=== PATIENT | female | born 1985 | race Caucasian/White ===

== ENCOUNTER 2025-02-07 18:32 | Emergency (ER) | payer MEDICAID, SELFPAY ==
[2025-02-07 19:15] VITALS: BP 109/80; PULSE 70; RESP 16; TEMP 36.8; O2SAT 100; BMI 27.6
[2025-02-07 20:31] VITALS: BP 000/00; PULSE 0; RESP 0; TEMP -17.7; TEMP 0; O2SAT 0
--- NOTE | 2025-02-07 23:40 | [facility].EDGENADL ---
Discharge Plan Disposition Patient Disposition: Eloped Chief Complaint: Extremity Injury, Lower Prescriptions Prescriptions: No Action hydroxyzine pamoate [Vistaril] 25 MG Capsule 25 mg PO BID PRN (Reason: Anxiety) ivermectin 3 MG Tablet 3 mg PO DIRECTED Rx Instructions: on days 1,2 8,9,15 mebendazole 100 MG tablet,chewable 100 mg PO BID Qty: 6 3RF clindamycin HCl [Cleocin HCl] 300 MG Capsule 300 mg PO Q6H Qty: 28 0RF Clinical Impressions Clinical Impression: Eloped from emergency department Print Language Print Language: Lebanese Discharge ED Provider: Damon Wilburn General Adult HPI General Chief complaint: Extremity Injury, Lower Stated complaint: Knot on left leg Time Seen by Provider: 02/07/25 19:40 Mode of Arrival: Ambulatory Source of Information: Patient Description of Symptoms (Recalled from ER Triage Doc. by RN): Pt states she has had a knot on her left leg that will not go away. Seen 2 weeks ago at [facility], [place] neg, given abx as and she states it is breaking her face out... History of Present Illness HPI narrative: Patient left without being seen. I was therefore unable to assess patient and form a clinical impression. Please note that first provider time was documented solely for the purposes of chart completion. Electronic medical record will not allow me to file a note for the purposes of documenting this encounter in the emergency department without first provider time but again, I did not evaluate the patient. Related Data Home Medications ?Medication ?Instructions ?Recorded ?Confirmed hydroxyzine pamoate 25 mg capsule 25 mg PO BID PRN Anxiety 01/13/18 01/13/18 (Vistaril) ivermectin 3 mg tablet 3 mg PO DIRECTED skin problems 01/13/18 01/13/18 Previous Rx's ?Medication ?Instructions ?Recorded mebendazole 100 mg chewable tablet 100 mg PO BID exposure to Bot fly 01/13/18 ##6 clindamycin HCl 300 mg capsule 300 mg PO Q6H ##28 07/02/18 (Cleocin HCl) Allergies Allergy/AdvReac Type Severity Reaction Status Date / Time amoxicillin (AMOXICILLIN) Allergy Intermediate Verified 07/02/18 16:20 erythromycin base (From Allergy Intermediate Verified 07/02/18 16:20 ERYTHROCIN) Penicillins (PENICILLINS) Allergy Intermediate Verified 01/01/18 14:16 sulfisoxazole (SULFISOXAZOLE) Allergy Intermediate Verified 07/02/18 16:20 tramadol (TRAMADOL) Allergy Unknown Verified 07/02/18 16:20 [facility] Disclaimer: The information contained in this section may have been updated after the patient was seen, as this information can be updated by other users. Social History Smoking Status: Current every day smoker tobacco type: cigarettes alcohol intake: never current occupational status: other Travel in the last 8 weeks?: None ROS Obtained: Yes other (Unobtainable) Physical Exam General General appearance: other (Unobtainable) Head Head exam: other (Unobtainable) ENT ENT exam: Present other (Unobtainable) Neck Neck exam: Present other (Unobtainable) Chest Chest inspection: Present other (Unobtainable) Respiratory Respiratory exam: Present other (Unobtainable) Cardiovascular Cardiovascular exam: Present other (Unobtainable) Abdominal Exam Abdominal exam: Present other (Unobtainable) Extremities Exam Extremities exam: Present other (Unobtainable) Back Exam Back exam: Present other (Unobtainable) Neurological Exam Neurological exam: Present other (Unobtainable) Psychiatric Psychiatric exam: Present other (Unobtainable) Medical Decision Making Medical Records Screening: Per USPSTF and CDC recommendations, given the prevalence of disease in our region, it is our hospital?s policy to screen for HIV and viral Hepatitis for all patients aged 18 and over and those with ongoing risk factors. Fabian Inquiry Pt receiving controlled substance: No Vital Signs: 02/07/25 19:15 02/07/25 20:31 Temperature 98.2 F 0 F L Temperature Source Oral Pulse Rate 0 L Pulse Rate [Left] 70 Respiratory Rate 16 0 L Blood Pressure 000/00 L Blood Pressure [Right Arm] 109/80 L Blood Pressure Mean [Right Arm] 89 Blood Pressure Source [Right Arm] Automatic Cuff Blood Pressure Position [Right Arm] Sitting 02 Sat by Pulse Oximetry 100 Oxygen Delivery Method Room Air Medical Decision Narrative: Patient left without being seen. I was therefore unable to assess patient and form a clinical impression.Please note that first provider time was documented solely for the purposes of chart completion.Electronic medical record will not allow me to file a note for the purposes of documenting this encounter in the emergency department without first provider time but again I did not see patient. Critical Care Critical Care Time Critical Care Time: No
== END 2025-02-07 19:45 | disposition left against medical advice (07) ==
LOC: ER 19:24
PROVIDERS: Emergency Provider Emergency Medicine; PCP Emergency Medicine
DX: Z53.21 Procedure and treatment not carried out due to patient leaving prior to being seen by health care provider (principal)
CPT/HCPCS: 99211

== ENCOUNTER 2025-02-24 10:06 | Outpatient (CLI) | payer MEDICAID, SELFPAY ==
[2025-02-24 15:28] LABS: Coronavirus 19, PCR Not Detected (NotDetected); Human Rhinovirus Not Detected (NotDetected); Influenza A, PCR Not Detected (NotDetected); Influenza B, PCR Not Detected (NotDetected); Respiratory Syncytial Virus Not Detected (NotDetected)
--- OUTSIDE RECORDS SUMMARY | 2025-02-25 13:46 | XMS_ITS | Continuity of Care Document ---
Author Organization [facility] Address [address] [address] Care Team Providers Care Percussion Instrument Tuner Name Role Phone EDMOND OATES Primary Care Provider Assessment No assessment recorded. Plan of Treatment Reminders Order Date Submit Date Provider Last Modified By Organization Details Last Modified Time Details Appointments None recorded. Lab None recorded. Referral None recorded. Procedures None recorded. Surgeries None recorded. Imaging US, lower extremity 2024 025 [facility] ([facility]), [address] [place], [address], 5 07:47:18 Medication Orders clindamycin HCl 300 mg capsule 2024 025 [facility] [address] [facility], [place], [address], 5 16:08:24 Patient TargetsNo targets recorded. Patient InstructionsNo instructions recorded. Reason for Referral None Reported. Results Created Date Observation Date Name Description Value Unit Range Abnormal Flag Note LastModifiedBy Organization Detail LastModifiedTime 01/27/2001/25/[address] [facility] m [facility] [address] [facility] [address] Phone: Fax: Name: JENNIE REVELES Exam Date: : [birth year] Age 39 years Gender : F Access ion: [id number] Physic royal: YOCASTA OATES Facili ty: [place] Facili ty HSV: Outpat ient Exam: US EXTREM LT Ultras ound left lower extrem ity COMPAR HAWA: None HISTOR Y: Anteri or left gaviria swelli ng TECHNI QUE: B-mode and color Dopple r used FINDIN GS: Ultras ound of palpab le area in the left gaviria anteri or aspect was perfor med. No focal fluid collec tion or hemato ma detect ed. No superf icial thromb us in the local veins. There is mild soft tissue edema in the region of palpat ion. No focal mass detect ed. IMPRES SETH: Mild subcut aneous edema in the area of palpat ion. No organi zed fluid /cyst/ mass identi fied. Electr onical ly signed by: Hyacinth Merchant MD 2024 04:09 PM EDT RP Workst ation: [id number] Dictat ed By: HYACINTH MERCHANT Transc ribed By: Transc ribed On: 025 11:15 AM Electr onical ly signed by: HYACINTH MERCHANT 025 Thank you for referr JENNIE Wing to [facility]. Legall y authen ticate d by BRIANNA CLAROS MD 01-25 11:15: 23 CC'ed Logic: Orderi ng Provid er: ИВАН ROLDAN CC Provid er: ИВАН ROLDAN Attend ing Provid er: ИВАН ROLDAN Referr ing Provid er: ИВАН ROLDAN Admitt ing Provid er: ИВАН ROLDAN tpaini [facility] (Radiology) [address] , [place], [address], 01/27/2025 09:45:28 Result Notes None recorded. Problems Name Problem SNOMED Code Status Onset Date Resolution Date Notes Provider Name and Address Organization Details Recorded Time Chronic pain syndrome 370758142 Active 2021 IRENE Boo - [place] - [place] & [place] 16:02:26 Neck pain 26004100 Active 2021 Na Pardini null, [place] - [facility] - [place] & [place] 2 16:02:37 Asthma 247439159 Active 2021 Na Danieldini null, [place] [facility] & [place] 2 16:02:51 Insomnia 807936032 Active 2021 Na Pardini [place] & [place] 2 16:03:27 Gastroesophag eal reflux disease 357096635 Active 2021 Na Pardini [place] & [place] 2 16:04:03 Degeneration of intervertebra l disc 68890451 Active 2021 Na Pard[place] & [place] 2 16:04:31 Anxiety disorder 934540157 Active 2021 Na Pardini [place] 2 16:04:40 History of drug abuse 937533851 Active 2021 Na Pardini [place] & [place] 2 16:04:50 Chronic fatigue syndrome 59675529 Active 2021 Na Pard[place] 2 16:05:03 Carpal tunnel syndrome 31145156 Active 2021 Na Pard[place] & [place] 2 16:05:15 Hearing loss 46642791 Active 2021 Na Pard[place] 2 16:05:37 Normal grief reaction 007334685 Active 2021 Na Pardini [place] [facility] [place] & [place] 2 16:05:52 Vitamin deficiency 25355031 Active 2021 Edmond Oates MD [address] [place] [address], [address] , [place] - [facility] - [place] & [place] 2 16:32:07 Seizure disorder 586265292 Active 2022 Edmond Oates MD [address] [place], [address] , [place] & [place] 3 14:31:57 Chronic hepatitis C 044821614 Active 2022 Veronica Quintana NP [address] [facility], [address], [place], [address] , [place] [facility] - [place] & [place] 3 13:09:26 Constipation 69012206 Active 2022 Veronica Quintana NP [address] [facility], [address], [place], [address] , [place] & [place] 3 13:09:26 Chest pain 61005418 Active 2022 Veronica Quintana NP [address] [place] [address], [address] [place] [address], [address] , [place] & [place] 3 13:09:26 Chronic idiopathic constipation 96388678 Active 2022 Veronica Quintana NP [address] [place] [address], [address], [address] , [place] [facility] & [place] 3 14:48:58 Problem Notes None recorded. Procedures Surgical History Date Name Laterality Status Provider Name and Address Organization Details Recorded Time 06/26/20 23 EMG/ Nerve Conduction Study completed Shubham Mix M.D [address] [place] [address], [address], [place], [address], [place] [facility] [place] & [place] 07/01/2023 22:50:04 06/23/20 23 EMG/ Nerve Conduction Study completed Shubham Mix M.D [address] [place] [address], [address], [place], [address], [place] - [facility] - [place] & [place] 07/01/2023 22:11:21 09/08/19 10 Other completed Livan Cassidy [place] - [place] - [place] & [place] 11/06/2022 15:01:29 09/08/19 07 Other completed Livan BONILLA - [facility] & [place] 11/06/2022 15:01:29 Caesarean Section completed Gabbie Zepeda [facility] & [place] 05/31/2024 10:09:18 tympanotomy completed Gabbie Zepeda [facility] & [place] 05/31/2024 10:12:06 Imaging Results None recorded. Procedure Notes None recorded. Medical Equipment None Reported. Allergies Allergen ID Allergen Name Allergen Category Reaction Reaction Severity Criticality Documentation Date Start Date Code Code System Note Provider Name and Address Organization Details Recorded Time 151825 cefaclor medicatio n Not available Not available low 11/02/2024 2176 RxNorm Adelita Colon null, [place] - [facility] & [place] 5 15:53:27 308491 erythromy nabil medicatio n rash mild low 11/02/2024 4053 RxNorm Adelita Colon null, [place] - [facility] & [place] 5 15:53:48 051159 Substance with sulfonami de structure and antibacte rial mechanism of action (substanc e) medicatio n rash mild low 11/02/2024 63998 8003 SNOMED Adelita Colon null, [place] - [facility] & [place] 5 15:54:08 70233 Pediazole medicatio n Not available Not available Not available 08/07/2022 46334 RxNorm Livan winters, [place] - [facility] & [place] 3 15:01:05 87392 amoxicill in medicatio n rash mild low 08/07/2022 723 RxNorm Adelita Colon null, [place] - [facility] & [place] 5 15:53:07 25972 tramadol medicatio n seizure severe Not available 08/07/2022 26004 RxNorm Wendya Khanh null, [place] - [facility] & [place] 3 15:01:05 95874 Product containin g penicilli n (product) medicatio n rash severe Not available 11/06/2022 00857 8001 SNOMED Rierra Cassidy null, [place] - [facility] - [place] & [place] 3 15:01:05 Medications Name Sig Start Date Stop Date Status Note LastModified by Organization Details LastModified Time Prescriptio n - Renewal 11/06 completed Not Available Not Available Not Available Miralax 17 gram/dose oral powder 17 g every day by oral route. active Not Available Not Available No t Available methocarbam ol 500 mg tablet TAKE 1 TABLET BY MOUTH EVERY 12 HOURS 06/12 completed Not Available Not Available Not Available prednisone 10 mg tablet TAKE 6 TABS BY MOUTH ONCE DAILY FOR 2 DAYS, THEN TAKE 5 TABLETS ONCE DAILY FOR 2 DAYS, THEN TAKE 4 TABLETS ONCE DAILY FOR 2 DAYS, THEN TAKE 3 TABLETS ONCE DAILY FOR 2 DAYS, THEN TAKE 2 TABLETS ONCE DAILY FOR 2 DAYS, THEN TAKE 1 TAB ONCE DAILY FOR 2 DAYS 07/23 completed Not Available Not Available Not Available gabapentin 600 mg tablet TAKE 1 TABLET BY MOUTH 4 TIMES DAILY DIRECTED active Not Available Not Available No t Available doxycycline hyclate 100 mg capsule TAKE 1 CAPSULE BY MOUTH TWICE DAILY FOR 7 DAYS active Not Available Not Available No t Available atorvastati n 20 mg tablet TAKE 1 TABLET BY MOUTH ONCE DAILY active Not Available Not Available No t Available clindamycin HCl 300 mg capsule TAKE 1 CAPSULE BY MOUTH THREE TIMES DAILY active Not Available Not Available No t Available trazodone 50 mg tablet TAKE 1 TABLET BY MOUTH AT BEDTIME NEEDED 11/06 completed Not Available Not Available Not Available cetirizine 10 mg tablet TAKE 1 TABLET BY MOUTH ONCE DAILY 01/19 completed Not Available Not Available Not Available azithromyci n 250 mg tablet TAKE 1 TABLET BY MOUTH ONCE DAILY FOR 4 DAYS 11/30 completed Not Available Not Available Not Available ibuprofen 800 mg tablet TAKE 1 TABLET BY MOUTH THREE TIMES DAILY active Not Available Not Available No t Available tizanidine 4 mg tablet TAKE 1 TABLET BY MOUTH TWICE DAILY NEEDED FOR MUSCLE SPASM active Not Available Not Available No t Available hydrocodone 5 mg-acetamin ophen 325 mg tablet TAKE 1 TABLET BY MOUTH EVERY 6 HOURS 08/07 completed Not Available Not Available Not Available ondansetron HCl 4 mg tablet TAKE 1 TABLET BY MOUTH EVERY 6 HOURS FOR NAUSEA AND VOMITING 11/06 completed Not Available Not Available Not Available prednisone 20 mg tablet TAKE 2 TABLETS BY MOUTH ONCE DAILY FOR 5 DAYS active Not Available Not Available No t Available gabapentin 400 mg capsule TAKE 1 CAPSULE BY MOUTH THREE TIMES DAILY 03/27 completed Not Available Not Available Not Available hydroxyzine HCl 50 mg tablet TAKE 1 TABLET BY MOUTH EVERY 12 HOURS NEEDED 06/12 completed Not Available Not Available Not Available propranolol 10 mg tablet TAKE 1 TABLET BY MOUTH ONCE DAILY 08/07 completed Not Available Not Available Not Available famotidine 20 mg tablet TAKE 1 TABLET BY MOUTH ONCE DAILY 11/30 completed Not Available Not Available Not Available meclizine 25 mg tablet Take 1 tablet 3 times a day by oral route as needed for 10 days. 06/12 completed Not Available Not Available Not Available gabapentin 300 mg capsule Take 1 capsule 3 times a day by oral route. 03/27 completed Not Available Not Available Not Available omeprazole 20 mg capsule,del ayed release TAKE 1 CAPSULE BY MOUTH ONCE DAILY IN THE MORNING BEFORE BREAKFAST active Not Available Not Available No t Available folic acid 1 mg tablet TAKE 1 TABLET BY MOUTH ONCE DAILY 11/30 completed Not Available Not Available Not Available levofloxaci n 500 mg tablet 04/08 completed Not Available Not Available Not Available methylpredn isolone 4 mg tablets in a dose pack TAKE DIRECTED 11/30 completed Not Available Not Available Not Available lamotrigine 100 mg tablet TAKE 1 TABLET BY MOUTH ONCE DAILY active Not Available Not Available No t Available nitrofurant oin monohydrate /macrocryst als 100 mg capsule TAKE 1 CAPSULE BY MOUTH EVERY 12 HOURS 04/13 completed Not Available Not Available Not Available ProAir HFA 90 mcg/actuati on aerosol inhaler INHALE 2 PUFFS BY MOUTH EVERY 4 HOURS NEEDED 08/07 completed Not Available Not Available Not Available omeprazole 20 mg tablet,jeremi yed release 02/02 completed Not Available Not Available Not Available desvenlafax ine succinate ER 50 mg tablet,exte nded release 24 hr Take 1 tablet by mouth once daily 2024 active Not Available Not Available Not Avai lable Vraylar 1.5 mg capsule TAKE 1 CAPSULE BY MOUTH ONCE DAILY active Not Available Not Available No t Available sofosbuvir 400 mg-velpatas vir 100 mg tablet 12/24 completed Not Available Not Available Not Available Paxlovid 300 mg (150 mg x 2)-100 mg tablets in a dose pack TAKE 3 TABLETS TOGETHER (TWO 150 MG NIRMATREL VIR TABLETS AND ONE 100 MG RITONAVIR TABLET) BY MOUTH TWICE DAILY FOR 5 DAYS. 06/15 completed Not Available Not Available Not Available Vitals Date Recorded Body height Body mass index (BMI) Body weight Body temperature Oxygen saturation Oxygen saturation in Arterial blood by Pulse oximetry Heart rate Respiratory rate Systolic blood pressure Diastolic blood pressure Provider Name and Address Organization Details Last Updated DateTime 149.86 cm 28.1 kg/m2 84836.3 4 g 98.4 [degF] 99 % 99 % 87 /min 16 /min 111 mm[Hg] 70 mm[Hg] Na Vega [facility] & [place] 15:31:19 Social History Question Answer Notes LastModified by Organizat ion Details LastModified Time Tobacco Smoking Status Former Smoker Na Vega [facility] & [place] 11/30/2024 08:27:46 Do You Have An Advance Directive? Yes [email or web address] Information n ot available 11/06/2022 Do You Wear A Helmet When Biking? Yes Information not available 11/30/2024 Are You Blind Or Do You Have Difficulty Seeing? Yes [email or web address] Information n ot available 11/06/2022 What Is Your Level Of Caffeine Consumption? Moderate [email or web address] Information not available 08/13/2023 In The 14 Days Before Symptom Onset, Have You Had Close Contact With A Laboratory-confirm ed COVID-19 While That Case Was Ill? No Information n ot available 11/30/2024 In The 14 Days Before Symptom Onset, Have You Had Close Contact With A Person Who Is Under Investigation For COVID-19 While That Person Was Ill? No Information not available 11/30/2024 Have You Been To An Area Known To Be High Risk For COVID-19? No Information not available 11/30/2024 Are You Deaf Or Do You Have Serious Difficulty Hearing? No Information not available 11/30/2024 What Type Of Diet Are You Following? REGULAR [email or web address] Information n ot available 08/13/2023 Have You Processed Blood Or Body Fluids From An Ebola Virus Disease Patient Without Appropriate PPE? No Information not available 11/30/2024 Do You Reside In Or Have You Traveled To An Area Where Ebola Virus Transmission Is Active? No Information not available 11/30/2024 Have There Been Any Changes To Your Family Or Social Situation? No Information no t available 11/30/2024 What Is The Fluoride Status Of Your Home? Unknown Information not available 11/30/2024 Are There Any Guns Present In Your Home? No Information not available 11/30/2024 Have You Recently Or Are You Planning To Travel To An Area With Zika Virus? No Information not available 11/30/2024 Do You Use Insect Repellent Routinely? Yes Information not available 11/30/2024 Do You Feel Safe At Home? Yes Information not available 11/30/2024 What Was The Date Of Your Most Recent Tobacco Screening? 11/06/2022 [email or web address] Information not available 11/06/2022 What Is Your Current Pack Years? 10-19packyear s [email or web address] Information not available 08/13/2023 Do You Have Any Pets? No Information not available 11/30/2024 What Is Your Relationship Status? Single Information not available 11/30/2024 Do You Use Your Seat Belt Or Car Seat Routinely? Yes Information not available 11/30/2024 Are You Sexually Active? Yes Information not available 11/30/2024 Do You Have Smoke And Carbon Monoxide Detectors In Your Home? Yes Information not available 11/30/2024 Are You Passively Exposed To Smoke? Yes [email or web address] Information no t available 11/06/2022 How Much Tobacco Do You Smoke? No Information not available 11/30/2024 Do You Use Sunscreen Routinely? Yes Information not available 11/30/2024 Has Tobacco Cessation Counseling Been Provided? Yes [email or web address] Information not available 08/13/2023 On What Date Was Tobacco Cessation Counseling Provided? 08/07/2022 [email or web address] Information not available 08/13/2023 How Many Years Have You Smoked Tobacco? 17 Information not available 07/23/2023 Do You Have Difficulty Walking Or Climbing Stairs? No Information not available 11/30/2024 Are You Currently In School? No Information not available 11/30/2024 Sex: Unknown Functional Status Question Answer Note LastModified by Organizat ion Details LastModified Time Do you use any illicit or recreational drugs? No Information not available 08/07/2022 Do you or have you ever used any other forms of tobacco or nicotine? Yes Information not available 11/30/2024 What is your level of alcohol consumption? None Information not available 08/07/2022 Do you or have you ever used smokeless tobacco? Former smokeless tobacco user [email or web address] Information not available 11/06/2022 Are you currently employed? No Information not available 11/30/2024 Do you have transportation difficulties? No Information not available 11/30/2024 Are you able to walk? [email or web address] Information not available 11/30/2024 Do you have difficulty doing errands alone? No Information not available 11/30/2024 Are you able to care for yourself? Yes Information n ot available 11/30/2024 Do you have difficulty dressing or bathing? No Information not available 11/30/2024 Do you or have you ever used e-cigarettes or vape? Current user of electronic cigarettes Information not available 11/30/2024 What is your exercise level? Moderate [email or web address] Information not available 11/06/2022 Mental Status Question Answer Note LastModified by Organizat ion Details LastModified Time Do you feel stressed (tense, restless, nervous, or anxious, or unable to sleep at night)? [id number] [email or web address] Information not available 11/06/2022 Do you have difficulty concentrating, remembering or making decisions? No Information no t available 11/30/2024 Family History Relationship Description Onset Age of this Age Resolved Age Notes LastModified by Organization Details LastModified Time Sister Heart disease [email or web address] Not available 2023 10:08:27 Sister Congenital heart disease [email or web address] Not available 2024 15:52:54 Mother Disorder of urinary bladder [email or web address] Not available 2023 10:08:46 Mother Mental disorder [email or web address] Not available 2024 15:51:14 Mother Malignant tumor of breast [email or web address] Not available 2024 15:52:28 Mother Malignant neoplasm of ovary [email or web address] Not available 2024 15:52:44 Father Hypertensive disorder [email or web address] Not available 2023 10:08:52 Unspecified Relation Degeneration of intervertebr al disc [email or web address] Not available 2023 10:10:54 Maternal Grandmother Mental disorder [email or web address] Not available 2024 15:51:08 Daughter Congenital heart disease [email or web address] Not available 2024 15:52:05 Paternal Grandmother Malignant neoplasm of ovary Not available 2024 15:52:44 Medical History Condition Response Substance Abuse Y Vision or Eye Problems Y Arthritis Y Ear or Hearing Problems Y Spine Problems Y Back Problems Y Neurological Problems Y Gynecological HistoryNo gynecological history recorded. Obstetrics History GPAL:G 0 P 0 0 0 0 Past Encounters Encounter ID Performer Location Encounter Start Date Encounter Closed Date Diagnosis/Indication Diagnosis SNOMED-CT Code Diagnosis ICD10 Code Diagnosis Note [id number] [facility] [address] [address] 01/19/2025 14:54:14 01/19/2025 16:06:28 Abscess of lower limb 204657228 L02.416 Health Concerns Section Related Observation LastModified by Organization Detai ls LastModified Time None Recorded Concern Status LastModified by Organization Details LastModified Time None Recorded Payers Encounter Date Sequence Insurance Name Policy Number Policy Esqueda Covered Member ID Esqueda Member ID Guarantor Name 01/19/2025 1 PASSPORT BY [employer] (MEDICAID REPLACEMENT - HMO) [id number] Jennie Reveles [id number] Jennie Reveles OBGyn Episode No OBEpisode recorded.
--- OUTSIDE RECORDS SUMMARY | 2025-02-25 13:46 | XMS_ITS | Continuity of Care Document ---
Author Organization [facility] Address [address] [place] [address] Care Team Providers Care Radiator Tester Name Role Phone SKYLER OATES Primary Care Provider LYUDMILA GARBER Referring Provider Unavailable Assessment Encounter Date Assessment Date Assessment LastModified by Organization Details LastModified Time 12/31/2024 12/31/2024 Pain History: Ms. Rivers is a pleasant 39-year-old female we see with increased neck pain and referral into the shoulders and upper extremities. This has been worse for some time now and she is just now reporting it. She also has back pain and radicular symptoms in bilateral lower extremities as well. We do provide her with gabapentin 600 mg 3 times daily which she has found beneficial to the degree in the past. She has solicit increase in medication in the past which she does again today. I am willing to do this but explained there are more potentially adverse side effects with higher doses particularly for long periods of time and there is no room to move beyond this in strength or frequency. She appears to understand. I have offered to increase this to 600 mg 4 times a day versus 800 mg 3 times a day. She would prefer to schedule her 600 mg capsules 4 times a day. This office does not provide any other medication for this patient. Past Medical History: This patient has multiple chronic pain complaints. She has chronic neck pain with radicular symptoms in bilateral upper extremities. She has chronic low back pain with symptoms extending into both lower extremities. She also has bilateral hip pain related to greater trochanteric bursitis. The primary care physician prescribes ibuprofen and tizanidine. Imaging: MRI cervical spine 04/2022 Some edematous spondylotic endplate changes are present at C4-5 and C5-6. There is otherwise no evidence of fracture or suspicious marrow replacing lesion. There is straightening and mild reversal of usual cervical lordosis, otherwise without evidence of listhesis or subluxation. The cervical spinal cord is normal in caliber and signal throughout. The paraspinal soft tissues demonstrate no acute finding. Multilevel spondylosis change is evident, with areas of involvement noted including C2-3, bilateral facet arthropathy with some ugrv-mv-shbhujhs neuroforaminal narrowing present. The spinal canal is patent. C3-4, disc osteophyte complex and bilateral facet arthropathy. There is lwoy-ah-sweyazao spinal canal narrowing and mild bilateral neuroforaminal stenosis. C4-5, disc osteophyte complex and bilateral facet arthropathy. There is moderate to severe spinal canal narrowing and moderate bilateral neuroforaminal stenosis. C5-6, disc osteophyte complex and bilateral facet arthropathy, with moderate to severe spinal canal narrowing and moderate bilateral neuroforaminal stenosis. C6-7, small disc osteophyte complex and bilateral facet arthropathy. There is mild spinal canal and bilateral neuroforaminal narrowing IMPRESSION: Multilevel cervical spondylosis is present, appearing similar to 2020 comparison and most severe at the C4-5 and C5-6 levels where there is moderate to severe spinal canal narrowing and zzss-ak-ktusskzd bilateral neuroforaminal stenosis. Surgical evaluation/ history: Not a surgical candidate per [facility] neurosurgery note Conservative Treatments: Patient has failed conservative measures for greater than 6 weeks including physical therapy/chiroprac tic care/spinal manipulation, a monitored home exercise program, and/or NSAIDs within the last six months. Interventional treatment history: None Previous analgesics: OTC, ibuprofen Current analgesics: Gabapentin 600 mg 3 times daily, ibuprofen Compliance Monitoring: The patient is currently prescribed gabapentin which she tolerates. The updated Fabian report is reviewed today and is appropriate. Urine drug screen sent for confirmation on 11/01/2024 was appropriately positive for gabapentin as expected. No urine drug screen was obtained today 12/31/2024. Anticoagulant/Ant iplatelet Medications: NSAIDs Plan: Ms. Rivers is a pleasant 39-year-old female with increased neck pain with referral into shoulders and bilateral upper extremities. She reports that her back pain and radicular symptoms are stable. I will increase her gabapentin from 600 mg 3 times a day to 4 times a day. She will follow-up in office in 60 days for further evaluation and treatment planning. If she has any adverse side effects she knows to stop the medication immediately and contact the office. [email or web address] Not available 12/31/2024 15:27:14 Plan of Treatment Reminders Order Date Submit Date Provider Last Modified By Organization Details Last Modified Time Details Appointments FOLLOW UP 15 2024 03:00P Roger THUAN LEROY APRN Not available Not available Not available Lab None recorded. Referral None recorded. Procedures None recorded. Surgeries None recorded. Imaging None recorded. Medication Orders gabapenti n 600 mg tablet 2024 025 [facility] [place], [address], 12/31/2024 15:25:05 Patient TargetsNo targets recorded. Patient Instructions Encounter Date Encounter Id Patient Instructions Last Modified By Organization Details Last Modified Time 12/31/2024 [id number] high blood pressure: care instructions [email or web address] Not available 12/31/2024 16:28:19 A healthy lifestyle: care instructions [email or web address] Not available 12/31/2024 16:28:19 advance directives: care instructions [email or web address] Not available 12/31/2024 16:28:19 depression and chronic disease: care instructions [email or web address] Not available 12/31/2024 16:28:19 safe use of opioid pain medicine: care instructions [email or web address] Not available 12/31/2024 16:28:19 Reason for Referral None Reported. Problems Name Problem SNOMED Code Status Onset Date Resolution Date Notes Provider Name and Address Organization Details Recorded Time Chronic pain 81367206 Active 2023 luis antonio winters [facility] 4 13:06:37 Lumbar radiculopathy 687536537 Active 2023 TAMMY Zheng [address] [place] [address], [phone] , [facility] 4 10:01:51 Acute pain 846959870 Active 2024 Alona winters [facility] 5 16:26:33 Cervical spondylosis 043960981 Active 2021 Becky Campbell null, [place] [facility] 2 14:29:11 Chronic hepatitis 58445992 Active 2021 Becky Campbell null, [place] [facility] 2 14:29:43 Degeneration of lumbar intervertebra l disc 22825038 Active 2021 Becky Campbell null, [place] [facility] 2 14:29:52 Depressive disorder 16649752 Active 2021 Becky Campbell null, [place] [facility] 2 14:25:20 Bipolar disorder 15789820 Active 2021 Becky Campbell null, [place] [facility] 2 14:25:26 Cervical radiculopathy 47920673 Active 2021 KAYLA ROSS MD [address] [place] [address], [phone] , [place] [facility] 2 16:28:45 Cervical spondylosis without myelopathy 673937187 Active 2021 KAYLA ROSS MD [address] [place] [address], [phone] , [place] [facility] 2 16:28:49 Overweight 684518324 Active 2022 alexandra durand null, [place] [facility] 3 06:01:51 Lumbar spondylosis 942327760 Active 2022 alexandra durand null, [place] [facility] 3 06:02:10 Lumbosacral radiculitis 76989783 Active 2022 luis antonio ireland null, [place] [facility] 3 15:29:27 Greater trochanteric pain syndrome 3257391 Active 2022 luis antonio ireland null, [place] [facility] 3 13:25:28 Problem Notes None recorded. Procedures Surgical History Date Name Laterality Status Provider Name and Address Organization Details Recorded Time delivery completed Becky Campbell [place] [facility] 07/02/2022 14:30:01 tympanotomy completed Becky [facility] 07/02/2022 14:30:11 Imaging Results None recorded. Procedure Notes None recorded. Medical Equipment None Reported. Allergies Allergen ID Allergen Name Allergen Category Reaction Reaction Severity Criticality Documentation Date Start Date Code Code System Note Provider Name and Address Organization Details Recorded Time 327971 tramadol medicatio n other Not available Not available 07/03/2022 06589 RxNorm IRENE [facility] 2 14:24:39 051310 amoxicill in medicatio n rash Not available Not available 07/03/2022 723 RxNorm IRENE [facility] 2 14:24:39 949394 Product containin g penicilli n (product) medicatio n rash Not available Not available 07/03/2022 51136 8001 SNOMED IRENE [facility] 2 14:24:39 844490 Pediazole medicatio n Not available Not available Not available 07/03/2022 42112 RxNorm IRENE [facility] 2 14:31:07 Medications Name Sig Start Date Stop Date Status Note LastModified by Organization Details LastModified Time methocarbam ol 500 mg tablet TAKE 1 TABLET BY MOUTH EVERY 12 HOURS 11/10 completed Not Available Not Available Not Available [...] 1 TAB ONCE DAILY FOR 2 DAYS 09/12 completed Not Available Not Available Not Available gabapentin 600 mg tablet TAKE 1 TABLET BY MOUTH 4 TIMES DAILY DIRECTED active Not Available Not Available No t Available atorvastati n 20 mg tablet TAKE 1 TABLET BY MOUTH ONCE DAILY 05/06 completed Not Available Not Available Not Available clindamycin HCl 300 mg capsule TAKE 1 CAPSULE BY MOUTH THREE TIMES DAILY 07/03 completed Not Available Not Available Not Available trazodone 50 mg tablet TAKE 1 TABLET BY MOUTH AT BEDTIME NEEDED 10/13 completed Not Available Not Available Not Available cetirizine 10 mg tablet TAKE 1 TABLET BY MOUTH ONCE DAILY 08/30 completed Not Available Not Available Not Available azithromyci n 250 mg tablet TAKE 1 TABLET BY MOUTH ONCE DAILY FOR 4 DAYS 08/30 completed Not Available Not Available Not Available ibuprofen 800 mg tablet TAKE 1 TABLET BY MOUTH THREE TIMES DAILY 10/28 completed Not Available Not Available Not Available tizanidine 4 mg tablet TAKE 1 TABLET BY MOUTH TWICE DAILY NEEDED FOR MUSCLE SPASM 10/28 completed Not Available Not Available Not Available hydrocodone 5 mg-acetamin ophen 325 mg tablet TAKE 1 TABLET BY MOUTH EVERY 6 HOURS 07/03 completed Not Available Not Available Not Available ondansetron HCl 4 mg tablet TAKE 1 TABLET BY MOUTH EVERY 6 HOURS FOR NAUSEA AND VOMITING 11/10 completed Not Available Not Available Not Available prednisone 20 mg tablet TAKE 1 TABLET BY MOUTH ONCE DAILY 09/12 completed Not Available Not Available Not Available gabapentin 400 mg capsule TAKE 1 CAPSULE BY MOUTH THREE TIMES DAILY 03/18 completed Not Available Not Available Not Available hydroxyzine HCl 50 mg tablet TAKE 1 TABLET BY MOUTH EVERY 12 HOURS NEEDED 09/16 completed Not Available Not Available Not Available propranolol 10 mg tablet TAKE 1 TABLET BY MOUTH ONCE DAILY 07/03 completed Not Available Not Available Not Available famotidine 20 mg tablet TAKE 1 TABLET BY MOUTH ONCE DAILY 10/28 completed Not Available Not Available Not Available meclizine 25 mg tablet TAKE 1 TABLET BY MOUTH THREE TIMES DAILY NEEDED FOR 10 DAYS 11/10 completed Not Available Not Available Not Available gabapentin 300 mg capsule Take 1 capsule 3 times a day by oral route as directed for 30 days. 11/10 completed Not Available Not Available Not Available omeprazole 20 mg capsule,del ayed release TAKE 1 CAPSULE BY MOUTH ONCE DAILY IN THE MORNING BEFORE BREAKFAST active Not Available Not Available No t Available folic acid 1 mg tablet TAKE 1 TABLET BY MOUTH ONCE DAILY 08/30 completed Not Available Not Available Not Available polyethylen e glycol 3350 17 gram/dose oral powder 11/10 completed Not Available Not Available Not Available levofloxaci n 500 mg tablet TAKE 1 TABLET BY MOUTH EVERY 24 HOURS FOR 10 DAYS 07/03 completed Not Available Not Available Not Available methylpredn isolone 4 mg tablets in a dose pack TAKE DIRECTED 12/31 completed Not Available Not Available Not Available lamotrigine 100 mg tablet TAKE 1 TABLET BY MOUTH ONCE DAILY active Not Available Not Available No t Available nitrofurant oin monohydrate /macrocryst als 100 mg capsule TAKE 1 CAPSULE BY MOUTH EVERY 12 HOURS 03/08 completed Not Available Not Available Not Available ProAir HFA 90 mcg/actuati on aerosol inhaler INHALE 2 PUFFS BY MOUTH EVERY 4 HOURS NEEDED 07/03 completed Not Available Not Available Not Available omeprazole 20 mg tablet,jeremi yed release TAKE 1 TABLET BY MOUTH ONCE DAILY IN THE MORNING BEFORE BREAKFAST 11/10 completed Not Available Not Available Not Available desvenlafax ine succinate ER 50 mg tablet,exte nded release 24 hr TAKE 1 TABLET BY MOUTH ONCE DAILY active Not Available Not Available No t Available Vraylar 1.5 mg capsule TAKE 1 CAPSULE BY MOUTH ONCE DAILY active Not Available Not Available No t Available sofosbuvir 400 mg-velpatas vir 100 mg tablet 07/05 completed Not Available Not Available Not Available Paxlovid 300 mg (150 mg x 2)-100 mg tablets in a dose pack TAKE 3 TABLETS TOGETHER (TWO 150 MG NIRMATREL VIR TABLETS AND ONE 100 MG RITONAVIR TABLET) BY MOUTH TWICE DAILY FOR 5 DAYS. 07/05 completed Not Available Not Available Not Available Vitals Date Recorded Body height Body mass index (BMI) Body weight Provider Name and Address Organization Details Last Updated DateTime 12/31/2024 149.86 cm 27.1 kg/m2 50464.38 g Alona Brooke [facility] 12/31/2024 15:01:02 Social History Question Answer Notes LastModified by Organizat ion Details LastModified Time Tobacco Smoking Status Current Every Day Smoker Becky winters [facility] 07/03/2022 14:33:46 Do You Have An Advance Directive? No [email or web address] Information n ot available 07/03/2022 In The 14 Days Before Symptom Onset, Have You Had Close Contact With A Laboratory-confirm ed COVID-19 While That Case Was Ill? No [email or web address] Information n ot available 07/03/2022 In The 14 Days Before Symptom Onset, Have You Had Close Contact With A Person Who Is Under Investigation For COVID-19 While That Person Was Ill? No Information not available 07/03/2022 What Type Of Diet Are You Following? REGULAR [email or web address] Information n ot available 07/03/2022 What Is The Highest Grade Or Level Of School You Have Completed Or The Highest Degree You Have Received? DC08399-6 Information not available 07/03/2022 How Many Times Per Week Do You Exercise? 1-2 Times Per Week [email or web address] Information not available 07/03/2022 What Was The Date Of Your Most Recent Tobacco Screening? 03/08/2024 [email or web address] Information not available 03/08/2024 What Is Your Relationship Status? Information not available 07/03/2022 How Much Tobacco Do You Smoke? 0.5 PPD [email or web address] Information not available 07/03/2022 Sex: Unknown Functional Status Question Answer Note LastModified by Organizat ion Details LastModified Time Do you use any illicit or recreational drugs? No [email or web address] Information not available 07/03/2022 What is your level of alcohol consumption? None [email or web address] Information not available 07/03/2022 Are you currently employed? Yes [email or web address] Information not available 09/16/2022 Are you able to walk? 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 Occasional [email or web address] Information not available 07/03/2022 Mental Status None recorded. Family History Relationship Description Onset Age of this Age Resolved Age Notes LastModified by Organization Details LastModified Time Maternal Grandmother Mental disorder [email or web address] Not available 07/03 14:24:43 Mother Mental disorder [email or web address] Not available 07/03 14:24:43 Sister Heart disease [email or web address] Not available 07/03 14:24:43 Medical History Condition Response Bipolar Disease Y Coronary Artery Disease N Seizure Disorder N Gout N Thyroid Disease N Atrial Fibrillation N Head Trauma/Injury N Hernia N Depression Y COPD N Anxiety Disorder Y Acid Reflux (GERD) N Cancer N Skin Disorder N Stroke N High Cholesterol N Liver Disease N Rheumatoid Arthritis N Headaches N Fibromyalgia N Autoimmune Disease N Kidney Disease N Osteoarthritis N Neurosurgery N DVT N Peptic Ulcer Disease N Anemia N Heart Attack (AL) N Diabetes N Cardiomyopathy N Bleeding Disorder N CHF N AIDS/HIV N Inflammatory Bowel Disease N Dementia N Asthma N Substance Abuse N Sleep Apnea N Hepatitis N Heart Disease N Pulmonary Embolism N Chronic Low Back Pain N Hypertension N Osteoporosis N Gynecological HistoryNo gynecological history recorded. Obstetrics History GPAL:G 0 P 0 0 0 0 Past Encounters Encounter ID Performer Location Encounter Start Date Encounter Closed Date Diagnosis/Indication Diagnosis SNOMED-CT Code Diagnosis ICD10 Code Diagnosis Note [id number] KAYLA ROSS MD [place] [address] [facility] [address] [place] [address] 12/31/2024 14:35:56 12/31/2024 15:25:02 Chronic pain 88279416 G89.29 Cervical radiculopathy 95431923 M54.12 Lumbar radiculopathy 128 675813 M54.16 Greater tr ochanteric pain syndrome 1918096 M70.61 M70.62 Hypertensi on screening 586556608 Z13.6 Long-term drug therapy 640521079 Z79.899 NO UDS TODAY 12/31/2024 Acute pain 861563351 R52 Health Concerns Section Related Observation LastModified by Organization Detai ls LastModified Time None Recorded Concern Status LastModified by Organization Details LastModified Time None Recorded Payers Encounter Date Sequence Insurance Name Policy Number Policy Esqueda Covered Member ID Esqueda Member ID Guarantor Name 12/31/2024 1 [employer] (MEDICAID REPLACEMENT - HMO) Miranda Guzman [id number] Miranda Guzman Notes Date Note Type Note Provider Name and Address Organization Details Recorded Time 12/31/2024 text/html Neck painReporte d bypatient.Onset:date of onset: (2014) Location:bilateral paraspinal; midline spine; radiating to the bilateral upper extremities to the hand; R>L Duration:constant Context:started without cause Quality:throbbing;num srikanth;burning;aching;s tabbing;sharp;varies Pain Intensitycurrent pain level: 6/10; worst pain level: 10/10; moderate Alleviating Factors:nothing helps Timing:constant; varies throughout the day Associated Symptoms:no dizziness; no popping/clicking; no bladder incontinence; no bowel incontinence;weakness ;numbness;tingling;pa in in upper extremities Functional Assessment/Disability IndexLiving Independently; Able to bathe/groom without assistance.; 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 Prior Imaging:MRI (04/26/22 C-Spine); 04/26/22 EMG Bilateral Upper extremities Previous Cervical Surgery:recent surgical evaluation: (06/2022 Dr. Oates at [facility] neurosurgery - patient was referred for pain management) Interventional Treatment History:none Previous PT:3weeks of PT completed:; dates: (06/27/22); response to therapy: no pain improvement; None current Other Conservative Treatment:chiropracti c treatments: Current Analgesics:Gabapentin effective; NSAIDs effective; Muscle Relaxants effective; Reported pain relief- 50% for 4 hours; Last dose of Gabapentin was this morning around 8am. Pharmacy verified. 12/31/2024 Medications History:NSAIDS: (Ibuprofen- minimally effective); muscle relaxants: (robaxin- minimal relief); neuropathics: (denies rx); opioid pain medications: ([place]-ineffective tramadol- allergy) Adverse Reactions:no nausea; no vomiting; no constipation; no itching Working:no Functional Scores:Neck Disability Index (NDI) Completed: 07/03/22 LISSETTE 26 Prior Pain Management:no For Female Patients:Are you ? No Complete Care Program:Order Date: (10/29/2024) Patient presents today for f/u and medication refill. Patient states pain is 6/10 today . The patient has had no recent hospitalization, ER visits, specialist appointments (neurology, orthopedics, surgery), or updated imaging since their last visit. Patient reports no changes at this time. Patient would like to discuss medication today. THUAN LEROY APRN [address] [facility], [place], [address], [facility] 12/31/2024 16:28:30 OBGyn Episode No OBEpisode recorded.
--- OUTSIDE RECORDS SUMMARY | 2025-02-25 13:47 | XMS_ITS | Data Portability ---
Author Organization [facility], [facility] - ER Address [address] [place] [address] Assessment Encounter Date Assessment Date Assessment LastModified by Organization Details LastModified Time 02/01/2021 02/01/2021 The patient gave verbal consent using TeleHealth services and the consent is documented in the medical record prior to using the service. The patient has been informed of what a TeleMedicine visit is. Patient is located at assisted living facility. Provider is located at office. Names and roles of persons in addition to the patient and provider participating in telemedicine services include none. The patient had a 20 minute TeleMedicine consultation via [employer] to discuss the following: [email or web address] Not available 02/01/2021 16:01:10 Plan of Treatment Reminders Order Date Submit Date Provider Last Modified By Organization Details Last Modified Time Details Appointments None recorded. Lab TSH + free T4, serum 2020 021 [facility] (Lab Orders), [address], [place], [address], 21:05:36 drug screen, urine 2020 021 [email or web address] 1 [facility] (Op Registration) , [address], [place], [address], 12:42:57 ethanol, qualitative , urine 2020 021 [email or web address] 1 [facility] (Op Registration) , [address], [place], [address], 12:42:57 hepatitis C genotype, serum or plasma 2020 021 [email or web address] 1 [facility] (Op Registration) , [address], [place], [place], [address], 12:42:56 hepatitis C liver status biomarker panel, serum 2020 [facility] (Op Registration) , [address], [place], [address], 11:35:27 CMP, serum or plasma 2020 [facility] (Lab Orders), [address], [place], [address], 21:05:36 hepatitis A Ab, total, serum 2020 021 [email or web address] 1 [facility] (Op Registration) , [address], [place], [place], [address], 12:42:56 hepatitis B core Ab, total, serum 2020 021 [email or web address] 1 [facility] (Op Registration) , [address], [place], [place], [address], 12:42:56 HBsAg (hepatitis B surface Ag), serum 2020 021 sperkins2 1 [facility] (Op Registration) , [address], [place], [place], [address], 12:42:57 hepatitis B surface Ab, qualitative , serum 2020 021 [facility] (Op Registration) , [address], [place], [place], [address], 11:35:10 hepatitis C RNA, quant, PCR, serum 2020 021 [email or web address] 1 [facility] (Op Registration) , [address], [place], [address], 12:42:57 prothrombin time 2020 [facility] (Lab Orders), [address], [place], [address], 22:43:24 Hepatitis B virus, DNA, quant, viral load, PCR, serum or plasma 2020 [email or web address] 1 [facility] (Lab Orders), [address], [place], [address], 12:42:57 hbeab (hepatitis B envelope Ab), serum 2020 [facility] (Lab Orders), [address], [place], [address], 17:05:09 hbeag (hepatitis B envelope Ag), serum 2020 [facility] (Lab Orders), [address], [place], [address], 13:55:12 CBC 2020 [facility] (Lab Orders), [address], [place], [address], 19:23:15 HIV (1+2) Ab screen, serum 2020 [facility] (Lab Orders), [address], [place], [address], 16:43:26 Referral None recorded. Procedures None recorded. Surgeries None recorded. Imaging US, elastogram [address], [address], [place], [address], 08:07:14 Medication Orders None recorded. Patient TargetsNo targets recorded. Patient Instructions Encounter Date Encounter Id Patient Instructions Last Modified By Organization Details Last Modified Time 02/01/2021 [id number] Due to the COVID-19 (Novel Coronavirus) pandemic, it is within this context (and with the understanding that this method of patient encounter is in the patient s best interest as well as the health and safety of other patients and the public) that telehealth is being provided for this patient encounter rather than a [id number] visit. This patient encounter is appropriate at this time. This patient has been advised of the potential risks and limitations of this mode of treatment (including, but not limited to, the absence of in-person examination) and has agreed to be treated in a remote fashion despite these risks. Any and all of the patient s/patient s family s questions on this issue have been answered, and I have made no promises or guarantees to the patient. The patient has also been advised to contact this office for worsening conditions or problems, and seek emergency medical treatment and/or call 911 if the patient deems either necessary. HPI and/or vitals, if listed, were provided by the patient. spent 20 mins reviewing labs, records and medications will get labs send orders to [email or web address] will set up fibroscan discussed medications with possible s/e recommend putting up razors, nail clippers and toothbrush f/u in 1 [email or web address] Not available 02/01/2021 16:01:29 Reason for Referral None Reported. Results Created Date Observation Date Name Description Value Unit Range Abnormal Flag Note LastModifiedBy Organization Detail LastModifiedTime Result Notes None recorded. Medical Equipment None Reported. Allergies Allergen ID Allergen Name Allergen Category Reaction Reaction Severity Criticality Documentation Date Start Date Code Code System Note Provider Name and Address Organization Details Recorded Time 52565 Product containin g penicilli n (product) medicatio n Not available Not available Not available 02/01/2021 52726 8001 SNOMED ALLY Valenzuela [facility] 15:24:39 58017 Ceclor medicatio n Not available Not available Not available 02/01/2021 53016 5 RxNorm ALLY Valenzuela [facility] 15:24:47 66100 Substance with sulfonami de structure and antibacte rial mechanism of action (substanc e) medicatio n Not available Not available Not available 02/01/2021 99109 8003 SNOMED ALLY Valenzuela, [facility] 15:25:01 Medications Name Sig Start Date Stop Date Status Note LastModified by Organization Details LastModified Time hydrochlorothia zide 12.5 mg capsule Take 1 capsule every day by oral route. active Not Available Not Available No t Available Topamax active Not Available Not Avail able Not Available Cymbalta active Not Available Not Avai lable Not Available Vitals Date Recorded Body height Provider Name an d Address Organization Details Last Updated DateTime 02/01/2021 170.18 cm Hyacinth Urban ALLY [facility] 02/01/2021 15:24:17 Social History Question Answer Notes LastModified by Organizat ion Details LastModified Time Tobacco Smoking Status Current Every Day Smoker Hyacinth Urban ALLY vianey, [facility] 02/01/2021 15:26:14 In The 14 Days Before Symptom Onset, Have You Had Close Contact With A Laboratory-confirm ed COVID-19 While That Case Was Ill? No Information n ot available 02/01/2021 In The 14 Days Before Symptom Onset, Have You Had Close Contact With A Person Who Is Under Investigation For COVID-19 While That Person Was Ill? No Information not available 02/01/2021 Have You Been To An Area Known To Be High Risk For COVID-19? No Information not available 02/01/2021 What Was The Date Of Your Most Recent Tobacco Screening? 02/01/2021 Information not available 02/01/2021 Sex: Unknown Functional Status None recorded. Mental Status None recorded. Family History Nothing Reported. Medical History No medical history recorded. Gynecological HistoryNo gynecological history recorded. Obstetrics History GPAL:G 0 P 0 0 0 0 Past Encounters Encounter ID Performer Location Encounter Start Date Encounter Closed Date Diagnosis/Indication Diagnosis SNOMED-CT Code Diagnosis ICD10 Code Diagnosis Note [id number] CLARKE CHANG CNP [facility] [address] [place] [address] 02/01/2021 13:59:17 02/01/2021 16:15:18 Chronic hepatitis C 812233339 B18.2 Malaise and fatigue 2717 24540 R53.81 HIV screening 171780978 Z11.4 Long-term drug therapy 042377886 Z79.899 Health Concerns Section Related Observation LastModified by Organization Detai ls LastModified Time None Recorded Concern Status LastModified by Organization Details LastModified Time None Recorded Advance Directives Directive None Recorded Payers Insurance Date Sequence Insurance Name Policy Number Policy Esqueda Covered Member ID Esqueda Member ID Guarantor Name 02/26/2021 1 [employer] (MEDICAID REPLACEMENT - HMO) [id number] Miranda Booker [id number] Miranda Booker Notes Date Note Type Note Provider Name and Address Organization Details Recorded Time 02/01/2021 text/html 35 yo wf, pt is giving hpi via telehealth, hx of hep c, diagnosed in 2018, hx of iv drug use, 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 no etoh, + tattoo-homemade, no blood transfusions, no cad, occ depression. no sa/si CLARKE CHANG, [employer] [facility] [place], [address], [facility] 02/01/2021 16:09:53 OBGyn Episode No OBEpisode recorded.
--- OUTSIDE RECORDS SUMMARY | 2025-02-25 13:47 | XMS_ITS | Data Portability ---
Author Organization [facility] Address [address] [facility] [address] [place] [address] Care Team Providers Care Public Health Nutritionist Name Role Phone SKYLER OATES Primary Care Provider [phone] LYUDMILA GARBER Referring Provider Unavailable Assessment Encounter Date Assessment Date Assessment LastModified by Organization Details LastModified Time 05/06/2024 05/06/2024 Interval history : Ms. Rivers is a 38-year-old female with fibromyalgia that we see for follow-up. She has multiple pain complaints related to this diagnosis however her primary complaint continues to be of neck pain with radicular symptoms in upper extremities. We do provide her with gabapentin which she typically finds beneficial. She has been spraying this medication out for some time now as she feels she did not get a refill on the last prescription. Appears based on my research that this is not the case. Either way we will send a new prescription in today as it does not appear that she has had prescriptions since March 08, 2024 based on the Nas which is not always accurate recently. She denies any change in her health since we seen her last. History: Ms. Rivers has multiple pain issues despite her age including a neck and low back pain. There are radicular symptoms in bilateral upper extremities. MRIs demonstrated fairly significant stenosis in the canal particularly at C4-5 and C5-6. I have previously recommended epidural injections as well as referral to a surgeon which she has declined. She there is also some arthritis again despite her age and we have discussed medial branch block with progression RFA which she is also declined. She continues to have this problem with as well as radicular symptoms in the upper extremities bilaterally extends in all digits. She also has some back pain and did have some radicular symptoms that were vague in the lower extremities. Today she has primary complaint of bilateral hip pain related to greater trochanteric bursitis. Again I discussed interventional treatment for this for which she has declined. We do provide her with gabapentin which she typically finds beneficial. She is not reporting adverse side effects with the medication. History of cocaine use in the past. None currently. Anticoagulants: None PMHx: Hypertension, GERD INJ Hx: None PSHx/Surgical Evaluation: Not a surgical candidate per [facility] neurosurgery note IMAGING: MRI cervical spine 04/2022 Some edematous spondylotic [...] including C2-3, bilateral facet arthropathy with some wghm-ad-sghhnjfy neuroforaminal narrowing present. The spinal canal is patent. C3-4, disc osteophyte complex and bilateral facet arthropathy. There is xyme-zs-flwyyxmv spinal canal narrowing and mild bilateral neuroforaminal [...] moderate to severe spinal canal narrowing and otuu-tx-wbuonmde bilateral neuroforaminal stenosis. Medications/Compl iance: Current medications include methocarbamol and gabapentin. The patient feels that they receive adequate analgesia and activity improvement with the medication. The patient denies side effects from the medications. Urine drug screen sent for confirmation on 11/11/2023 was appropriate positive for gabapentin as expected. No urine drug screen was obtained today 05/06/2024. The patient was advised that the purpose of this urine drug screen is to monitor for compliance and to assist in risk stratification. ORT score is 10 and PHQ-9 demonstrates mild depression. LISSETTE was reviewed and is 26 today. NAS report was reviewed today. Despite a ORT of 10 the patient has demonstrated no aberrant behaviors and has no medical or behavioral comorbidities at this time. For this reason I will place her at a moderate risk. PT Not beneficial in the past for neck pain Plan: Ms. Rivers is a 38-year-old female with fibromyalgia and multiple pain complaints in particular neck with radicular symptoms. We will continue gabapentin 600 mg 3 times daily today with new prescriptions. She will follow-up in office in 60 days for further evaluation and treatment planning. I have explained if she has any questions or issues with the medication in the future she needs to contact the office and let us know so we can sort this out. She appears to understand. [email or web address] Not available 05/06/2024 10:12:44 07/05/2024 07/05/2024 Interval history : Ms. Rivers is a 39-year-old female. She has treated in this clinic for chronic pain since June 2022. She presents to clinic today for the office visit follow-up and for medication refill. She reports her chronic pain complaints to be stable today. No changes reported today. She reports no issue with the gabapentin. No general health changes reported today. History: This patient has multiple chronic pain complaints. She has chronic neck pain with radicular symptoms in bilateral upper extremities. She has chronic low back pain with symptoms extending into both lower extremities. She also has bilateral hip pain related to greater trochanteric bursitis. The primary care physician prescribes ibuprofen and tizanidine. Anticoagulants: None PMHx: Hypertension, GERD INJ Hx: None PSHx/Surgical Evaluation: Not a surgical candidate per [facility] neurosurgery note IMAGING: MRI cervical spine 04/2022 Some edematous spondylotic [...] including C2-3, bilateral facet arthropathy with some ckhx-oi-gjsbnnke neuroforaminal narrowing present. The spinal canal is patent. C3-4, disc osteophyte complex and bilateral facet arthropathy. There is knek-nu-fxydssma spinal canal narrowing and mild bilateral neuroforaminal [...] moderate to severe spinal canal narrowing and mtbn-by-xijaorxq bilateral neuroforaminal stenosis. Medications/Compl iance: The patient is currently prescribed gabapentin which she tolerates. The updated Nas report is reviewed today and is appropriate. A urine specimen is obtained for screening and confirmation. The last dose of gabapentin was today. The specimen will be sent for confirmation today. Plan: This patient continues to report multiple chronic pain complaints. She reports her chronic pain complaints to be stable today. At this time, she is effectively managing with the current treatment plan. She does not require injection therapy at this time. The primary care physician prescribes ibuprofen and tizanidine. She reports therapeutic benefit with gabapentin. No side effects are reported today. She may continue gabapentin 600 mg 1 p.o. 3 times daily. She will be reassessed in office visit in 60 days. The ORT score is 10, but the risk assessment level has been placed to moderate. [email or web address] Not available 07/05/2024 10:01:16 08/30/2024 08/30/2024 Pain History: Ms. Rivers is a 39-year-old female we see for follow-up. She has neuropathic pain upper as well as lower extremities as well as neck and low back pain. She has multiple pain generators despite her age. For complaints we provide her with gabapentin which she typically finds beneficial and would like to continue. She denies any adverse side effects. She reports her pain is stable beti unchanged from the last visit. She denies any change in her health since we have seen her last. Past Medical History: This patient has multiple [...] including C2-3, bilateral facet arthropathy with some zqtl-md-tolqmbrt neuroforaminal narrowing present. The spinal canal is patent. C3-4, disc osteophyte complex and bilateral facet arthropathy. There is rwkq-ce-aenqjzdq spinal canal narrowing and mild bilateral neuroforaminal [...] moderate to severe spinal canal narrowing and xccw-ny-maiaborz bilateral neuroforaminal stenosis. Surgical evaluation/ history: Not a surgical candidate per [facility] neurosurgery note Conservative Treatments: Patient has failed conservative measures for greater than 6 weeks including physical therapy/chiroprac tic care/spinal manipulation, a monitored home exercise program, and/or NSAIDs within the last six months. Interventional treatment history: None Previous analgesics: OTC, ibuprofen Current analgesics: Gabapentin 600 mg 3 times daily, ibuprofen Compliance Monitoring: The patient is currently prescribed gabapentin which she tolerates. The updated Nas report is reviewed today and is appropriate. Urine drug screen sent for confirmation on 07/05/2024 was appropriately positive for gabapentin as expected. No urine drug screen is obtained today 08/30/2024. The patient's ORT is 10 by self reporting but is considered a moderate risk at this time. Anticoagulant/Ant iplatelet Medications: NSAIDs Plan: Ms. Rivers is a pleasant 39-year-old female with multiple pain generators despite her age including neuropathic painful upper and lower extremities for which we provide gabapentin 600 mg 3 times daily. I will continue this regimen today with a new prescription. She will follow-up in office in 60 days for further evaluation and treatment planning. Not available 08/30/2024 10:07:19 11/01/2024 11/01/2024 Pain History: Ms. Rivers is a pleasant 39-year-old female we see for follow-up today with primary complaint of neuropathic pain in upper and lower extremities bilaterally. She also continues to have neck and low back pain. There is also multiple joint issues despite her age. I believe there may be some underlying fibromyalgia at play. She reports her pain is much worse today but has reported exercising recently which she has not done in some time. For her complaints we provide her with gabapentin which she typically finds beneficial without any adverse side effects. She would like to continue this regimen. She denies any other changes in her health since we seen her last aside from increased pain. Past Medical History: This patient has multiple [...] including C2-3, bilateral facet arthropathy with some xqtg-co-mvheexhp neuroforaminal narrowing present. The spinal canal is patent. C3-4, disc osteophyte complex and bilateral facet arthropathy. There is bglx-tl-ofhyeyky spinal canal narrowing and mild bilateral neuroforaminal [...] moderate to severe spinal canal narrowing and ntro-xn-fhftlxoc bilateral neuroforaminal stenosis. Surgical evaluation/ history: Not a surgical candidate per [facility] neurosurgery note Conservative Treatments: Patient has failed conservative measures for greater than 6 weeks including physical therapy/chiroprac tic care/spinal manipulation, a monitored home exercise program, and/or NSAIDs within the last six months. Interventional treatment history: None Previous analgesics: OTC, ibuprofen Current analgesics: Gabapentin 600 mg 3 times daily, ibuprofen Compliance Monitoring: The patient is currently prescribed gabapentin which she tolerates. The updated Nas report is reviewed today and is appropriate. Urine drug screen sent for confirmation on 07/05/2024 was appropriately positive for gabapentin as expected. A urine drug screen was obtained today 11/01/2024 and will be sent for qualitative and quantitative analysis. The patient's ORT is 10 by self reporting but is considered a moderate risk at this time. Anticoagulant/Ant iplatelet Medications: NSAIDs Plan: Ms. Rivers is a pleasant 39-year-old female with increased generalized pain. I will provide a Medrol Dosepak today as this is acute on chronic complaint likely related to lactic acid after exercise. I explained we cannot repeat this ongoing but can do this roughly every 3 months if needed though I advised against it. I will continue her gabapentin 600 mg 3 times daily. I will provide new prescription today. She will follow-up in office in 60 days for further evaluation. No other medications were provided today. [email or web address] Not available 11/01/2024 08:36:37 12/31/2024 12/31/2024 Pain History: Ms. Rivers is [...] including C2-3, bilateral facet arthropathy with some cecb-zp-efczitdi neuroforaminal narrowing present. The spinal canal is patent. C3-4, disc osteophyte complex and bilateral facet arthropathy. There is kcin-vn-lqhgynjl spinal canal narrowing and mild bilateral neuroforaminal [...] moderate to severe spinal canal narrowing and hrfo-gh-nnnpoxfy bilateral neuroforaminal stenosis. Surgical evaluation/ history: Not a surgical candidate per [facility] neurosurgery note Conservative Treatments: Patient has failed conservative measures for greater than 6 weeks including physical therapy/chiroprac tic care/spinal manipulation, a monitored home exercise program, and/or NSAIDs within the last six months. Interventional treatment history: None Previous analgesics: OTC, ibuprofen Current analgesics: Gabapentin 600 mg 3 times daily, ibuprofen Compliance Monitoring: The patient is currently prescribed gabapentin which she tolerates. The updated Nas report is reviewed today and is appropriate. [...] the medication immediately and contact the office. [email or web address] Not available 12/31/2024 15:27:14 Plan of Treatment Reminders Order Date Submit Date Provider Last Modified By Organization Details Last Modified Time Details Appointments FOLLOW UP 15 2024 03:00P Roger LEROY APRN Not available Not available Not available Lab drug screen, urine - Qualitati ve LCMS Screen Panel 2024 025 [facility], [facility], [address] [place] [address], [id number], 11/05/2024 16:47:45 drug screen, urine - Qualitati ve LCMS Screen Panel 2023 024 [facility], [facility], [address] [place] [address], [id number], 07/09/2024 12:46:06 Referral None recorded. Procedures remote therapeut ic monitorin g to monitor musculosk eletal system (PROC) - Patient prescribe d RTM (Remote Therapeut ic Monitorin g) to prevent further functiona l decline and monitor treatment effective ness. Patient will complete medicatio n tracking and physical therapy exercises as instructe d. Monitorin g to take place over the next 12 months using the CP&S Jin to also include functiona l assessmen ts as well as daily pain scores. Patient consent obtained and device provided. 2023 024 [facility] Not available 08/30/2024 11:46:35 remote therapeut ic monitorin g to monitor musculosk eletal system (PROC) - Patient prescribe d RTM (Remote Therapeut ic Monitorin g) to prevent further functiona l decline and monitor treatment effective ness. Patient will complete medicatio n tracking and physical therapy exercises as instructe d. Monitorin g to take place over the next 12 months using the CP&S Jin to also include functiona l assessmen ts as well as daily pain scores. Patient consent obtained and device provided. 2023 024 [email or web address] Not available 05/06/2024 20:11:16 Surgeries None recorded. Imaging None recorded. Medication Orders gabapenti n 600 mg tablet 2024 025 [facility], [address] [place] [address], [id number], 12/31/2024 15:25:05 Medrol (Jerrell) 4 mg tablets in a dose pack 2024 025 [facility], [address] [place] [address], [id number], 12/31/2024 15:06:38 gabapenti n 600 mg tablet 2024 025 [facility], [address] [place] [address], [id number], 11/01/2024 08:34:53 gabapenti n 600 mg tablet 2023 024 [facility], [address] [place] [address], [id number], 08/30/2024 10:05:57 gabapenti n 600 mg tablet 2023 024 [facility] [address], [address] [place], [address], 07/05/2024 09:54:17 gabapenti n 600 mg tablet 2023 024 [facility] [address], [address] [place] [address], [id number], 05/06/2024 10:11:02 Patient TargetsNo targets recorded. Patient Instructions Encounter Date Encounter Id Patient Instructions Last Modified By Organization Details Last Modified Time 05/06/2024 [id number] behavioral healt h screen* [email or web address] Not available 05/06/2024 13:39:22 Opioid Risk Tool (ORT)* [email or web address] Not available 05/06/2024 12:31:45 08/30/2024 [id number] behavioral healt h screen* [email or web address] Not available 09/02/2024 08:01:53 11/01/2024 [id number] high blood pressure: care instructions [email or web address] Not available 11/01/2024 12:30:49 A healthy lifestyle: care instructions [email or web address] Not available 11/01/2024 12:30:49 advance directives: care instructions [email or web address] Not available 11/01/2024 12:30:48 depression and chronic disease: care instructions Not available 11/01/2024 12:30:48 safe use of opioid pain medicine: care instructions [email or web address] Not available 11/01/2024 12:30:48 Learning About Benefits of Quitting Smoking [email or web address] Not available 11/01/2024 12:30:49 behavioral healt h screen* Not available 11/23/2024 08:52:26 12/31/2024 [id number] high blood pressure: care instructions Not available 12/31/2024 16:28:19 A healthy lifestyle: care instructions Not available 12/31/2024 16:28:19 advance directives: care instructions [email or web address] Not available 12/31/2024 16:28:19 depression and chronic disease: care instructions [email or web address] Not available 12/31/2024 16:28:19 safe use of opioid pain medicine: care instructions [email or web address] Not available 12/31/2024 16:28:19 Reason for Referral None Reported. Results Created Date Observation Date Name Description Value Unit Range Abnormal Flag Note LastModifiedBy Organization Detail LastModifiedTime 05/06/20 24 05/06/2024 Opioi d Risk Tool (ORT) * ORT 10 Not Available [place] [address], [place], [address], 05/06/2024 07:55:07 Result Notes None recorded. Problems Name Problem SNOMED Code Status Onset Date Resolution Date Notes Provider Name and Address Organization Details Recorded Time Chronic pain 50986583 Active 2023 luis antonio winters, [place] - [facility] 4 13:06:37 Lumbar radiculopathy 942346846 Active 2023 TAMMY Zheng [address] [place] [address], [phone] [facility] [place] - [facility] 4 10:01:51 Acute pain 835479637 Active 2024 Alona cabrales null, [place] - [facility] 5 16:26:33 Cervical spondylosis 366907770 Active 2021 Becky Campbell null, [place] - [facility] 2 14:29:11 Chronic hepatitis 59222196 Active 2021 Becky Campbell null, [place] - [facility] 2 14:29:43 Degeneration of lumbar intervertebra l disc 64718787 Active 2021 Becky Campbell null, [place] - [facility] 2 14:29:52 Depressive disorder 05450169 Active 2021 Becky Campbell null, [place] - [facility] 2 14:25:20 Bipolar disorder 59589907 Active 2021 Becky Campbell null, [place] - [facility] 2 14:25:26 Cervical radiculopathy 86690670 Active 2021 KAYLA ROSS MD [address] [place] [address], [phone] , [place] - [facility] 2 16:28:45 Cervical spondylosis without myelopathy 042246524 Active 2021 KAYLA ROSS MD [address] [place] [address], [phone] , [place] - [facility] 2 16:28:49 Overweight 258222196 Active 2022 alexandra durand null, [place] - [facility] 3 06:01:51 Lumbar spondylosis 733295872 Active 2022 alexandra durand null, [place] - [facility] 3 06:02:10 Lumbosacral radiculitis 27572252 Active 2022 luis antonio ireland vianey, [place] - [facility] 3 15:29:27 Greater trochanteric pain syndrome 7361192 Active 2022 luis antonio ireland vianey, [place] - [facility] 3 13:25:28 Problem Notes None recorded. Procedures Surgical History Date Name Laterality Status Provider Name and Address Organization Details Recorded Time delivery completed Becky Barretooll [place] [facility] 07/02/2022 14:30:01 tympanotomy completed Becky Campbell [place] - [facility] 07/02/2022 14:30:11 Imaging Results None recorded. Procedure Notes None recorded. Medical Equipment None Reported. Allergies Allergen ID Allergen Name Allergen Category Reaction Reaction Severity Criticality Documentation Date Start Date Code Code System Note Provider Name and Address Organization Details Recorded Time [id number] tramadol medicatio n other Not available Not available 07/03/2022 50761 RxNorm Becky Campbell IRENE winters - [facility] 2 14:24:39 047083 amoxicill in medicatio n rash Not available Not available 07/03/2022 723 RxNorm Becky Campbell IRENE winters - [facility] 2 14:24:39 702043 Product containin g penicilli n (product) medicatio n rash Not available Not available 07/03/2022 53323 8001 SNOMED IRENE Arndt [facility] 2 14:24:39 930167 Pediazole medicatio n Not available Not available Not available 07/03/2022 98635 RxNorm IRENE Arndt [facility] 2 14:31:07 Medications Name Sig Start Date [...] height Body mass index (BMI) Body weight Oxygen saturation Oxygen saturation in Arterial blood by Pulse oximetry Heart rate Systolic blood pressure Diastolic blood pressure Provider Name and Address Organization Details Last Updated DateTime 5 149.86 cm 27.9 kg/m2 52940.7 5 g 99 % 99 % 77 /min 108 mm[Hg] 69 mm[Hg] Loren Rogers [facility] 5 08:23:35 Date Recorded Body height Body mass index (BMI) Body weight Provider Name and Address Organization Details Last Updated DateTime 12/31/2024 149.86 cm 27.1 kg/m2 04095.38 g Alona Brooke [facility] 12/31/2024 15:01:02 Date Recorded Body height Body mass index (BMI) Body weight Oxygen saturation Oxygen saturation in Arterial blood by Pulse oximetry Heart rate Systolic blood pressure Diastolic blood pressure Provider Name and Address Organization Details Last Updated DateTime 4 149.86 cm 24 kg/m2 60684.4 9 g 98 % 98 % 82 /min 88 mm[Hg] 60 mm[Hg] Dannielle Garcia [facility] 4 09:54:28 Date Recorded Body height Body mass index (BMI) Body weight Oxygen saturation Oxygen saturation in Arterial blood by Pulse oximetry Heart rate Systolic blood pressure Diastolic blood pressure Provider Name and Address Organization Details Last Updated DateTime 4 149.86 cm 24.8 kg/m2 06156.8 6 g 99 % 99 % 82 /min 104 mm[Hg] 64 mm[Hg] Patricia Molina [facility] 4 09:50:19 Date Recorded Body height Body mass index (BMI) Body weight Oxygen saturation Oxygen saturation in Arterial blood by Pulse oximetry Heart rate Systolic blood pressure Diastolic blood pressure Provider Name and Address Organization Details Last Updated DateTime 4 149.86 cm 24.8 kg/m2 03281.8 6 g 99 % 99 % 77 /min 97 mm[Hg] 60 mm[Hg] Bibiana Jackson [facility] 4 09:58:15 Social History Question Answer Notes LastModified by InC[employer] Details LastModified Time Tobacco Smoking Status Current Every Day Smoker Becky winters [facility] 07/03/2022 14:33:46 Do You Have An Advance Directive? No [email or web address] Information n ot available 07/03/2022 In The 14 Days Before Symptom Onset, Have You Had Close Contact With A Laboratory-confirm ed COVID-19 While That Case Was Ill? No Information n ot available 07/03/2022 In The 14 Days Before Symptom Onset, Have You Had Close Contact With A Person Who Is Under Investigation For COVID-19 While That Person Was Ill? No [email or web address] Information not available 07/03/2022 What Type Of Diet Are You Following? REGULAR [email or web address] Information n ot available 07/03/2022 What Is The Highest Grade Or Level Of School You Have Completed Or The Highest Degree You Have Received? [id number] [email or web address] Information not available 07/03/2022 How Many Times Per Week Do You Exercise? 1-2 Times Per Week Information not available 07/03/2022 What Was The Date Of Your Most Recent Tobacco Screening? 03/08/2024 [email or web address] Information not available 03/08/2024 What Is Your Relationship Status? [email or web address] Information not available 07/03/2022 How Much Tobacco Do You Smoke? 0.5 PPD [email or web address] Information not available 07/03/2022 Sex: Unknown Functional Status Question Answer Note LastModified by Organizat ion Details LastModified Time Do you use any illicit or recreational drugs? No [email or web address] Information not available 07/03/2022 What is your level of alcohol consumption? None [email or web address] Information not available 07/03/2022 Are you currently employed? Yes [email or web address] Information not available 09/16/2022 Are you able to walk? 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 Occasional [email or web address] Information not available 07/03/2022 Mental Status None recorded. Family History Relationship Description Onset Age of this Age Resolved Age Notes LastModified by Organization Details LastModified Time Maternal Grandmother Mental disorder [email or web address] Not available 07/03 14:24:43 Mother Mental disorder [email or web address] Not available 07/03 14:24:43 Sister Heart disease [email or web address] Not available 07/03 14:24:43 Medical History Condition Response Bipolar Disease Y Coronary Artery Disease N Gout N Seizure Disorder N Thyroid Disease N Atrial Fibrillation N Hernia N Head Trauma/Injury N COPD N Depression Y Anxiety Disorder Y Acid Reflux (GERD) N Cancer N Skin Disorder N Stroke N High Cholesterol N Liver Disease N Rheumatoid Arthritis N Fibromyalgia N Headaches N Autoimmune Disease N Kidney Disease N Osteoarthritis N Neurosurgery N DVT N Peptic Ulcer Disease N Anemia N Heart Attack ([place]) N Diabetes N Cardiomyopathy N Bleeding Disorder [...] SNOMED-CT Code Diagnosis ICD10 Code Diagnosis Note [id number] KAYLA ROSS MD [place] [address] [facility] ,[facility] [address] [place] [address] 07/03/2022 14:16:45 07/03/2022 15:33:07 Cervical spondylosis without myelopathy 228301265 M47.812 Cervical radiculopathy 87733210 M54.12 Long-term drug therapy 299397004 Z79.899 The urine sample is being sent for quantitati ve LCMS analysis of illicit drugs (Cocaine, Methamphet amine, Heroin, Fentanyl, THC, Synthetic Cannabinoi ds, Kratom, MDMA, PCP, and Synthetic Stimulants , Opiates (Codeine, Hydrocodon e, Hydromorph one, and Morphine), Oxycodone, Oxymorphon e, Methadone, Synthetic Opioids (Tramadol, Tapentadol , and Buprenorph ine), Benzodiaze pines (Alprazola m, Clonazepam , Lorazepam, Diazepam, Nordazepam , Oxazepam, and Temazepam) , Gabapentin , Pregabalin , Muscle Relaxants (Carisopro dol, Cyclobenza moon, and Meprobamat e), Ketamine, Nalaxone, and Amphetamin e, as this patient is being prescribed opioid medication s for the first time at this practice. The purpose of this analysis is to confirm the patients stated medication usage and to establish baseline medication and metabolite quantities , and to evaluate for use of medication s that are not prescribed or reported by the patient. ORT and PHQ-9 testing was completed to evaluate the patient's psychosoci al health to better determine baseline risk as we consider initiating opioid medication s. The patient's ORT score of 8 indicates high risk potential for medication misuse. The patients PHQ-9 of 6 indicates mild depression . Based on the above testing I would consider the patient to be high risk. [id number] KAYLA ROSS MD [place] [address] [address] 08/05/2022 09:36:38 08/05/2022 10:50:21 Cervical radiculopathy 46608503 M54.12 Cervical spondylosis 387 926328 M47.812 Lumbar spondylosis 82026 0009 M47.177 [id number] KAYLA ROSS MD [place] [address] [address] 09/16/2022 14:42:51 09/16/2022 15:15:06 Lumbar spondylosis 901902964 M47.896 Cervical radiculopathy 06745439 M54.12 Cervical spondylosis 387 226022 M47.273 [id number] KAYLA ROSS MD [place] [address] [address] 10/16/2022 14:52:35 10/16/2022 15:49:06 Long-term drug therapy 782019358 Z79.899 Hypertensi on screening 630459899 Z13.6 Lumbar spondylosis 96970 0009 M47.896 Cervical radiculopathy 30714583 M54.12 Cervical spondylosis 387 574470 M47.472 [id number] MD [place] [address] [place] [address] 11/14/2022 09:13:21 11/14/2022 09:53:05 Hypertension screening 249834981 Z13.6 Lumbar spondylosis 35717 0009 M47.896 Cervical radiculopathy 11312816 M54.12 Cervical spondylosis 387 147361 M47.812 Long-term drug therapy 208906398 Z79.899 UDS DONE 11/14/2022 [id number] [place] [address] [place] [address] 01/16/2023 09:35:44 01/16/2023 10:28:46 Hypertension screening 265095706 Z13.6 Lumbar spondylosis 68167 0009 M47.896 Cervical radiculopathy 95371198 M54.12 Cervical spondylosis 387 498735 M47.812 Long-term drug therapy 656163488 Z79.899 Lumbosacra l radiculitis 68316865 M54.17 [id number] MD [place] [address] [place] [address] 03/18/2023 09:25:38 03/18/2023 09:59:36 Lumbar spondylosis 189889249 M47.816 Cervical radiculopathy 95045928 M54.12 Cervical spondylosis 387 094111 M47.812 Long-term drug therapy 645612061 Z79.899 UDS 03/18/2023 Lumbosacra l radiculitis 85584605 M54.17 Greater tr ochanteric pain syndrome 5802809 M70.61 M70.62 [id number] KAYLA ROSS MD [place] [address] [place] [address] 2023 09:38:54 2023 10:30:40 Lumbar spondylosis 678146593 M47.816 Cervical radiculopathy 61087868 M54.12 Cervical spondylosis 387 095348 M47.812 Lumbosacra l radiculitis 77408148 M54.17 Long-term drug therapy 425333581 Z79.899 NO UDS TODAY 2023 Greater tr ochanteric pain syndrome 3251226 M70.61 M70.62 [id number] KAYLA ROSS MD [place] [address] [place] [address] 07/14/2023 14:19:20 07/14/2023 14:53:34 Lumbar spondylosis 743122898 M47.816 Cervical radiculopathy 29710949 M54.12 Cervical spondylosis 387 485822 M47.812 Lumbosacra l radiculitis 62950429 M54.17 Long-term drug therapy 527652656 Z79.899 NO UDS 07/14/2023 Greater tr ochanteric pain syndrome 1227079 M70.61 M70.62 [id number] KAYLA ROSS MD [place] [address] [place] [address] 09/12/2023 14:09:05 09/12/2023 14:27:11 Lumbar spondylosis 086474211 M47.816 Cervical radiculopathy 37781310 M54.12 Cervical spondylosis 387 732196 M47.812 Lumbosacra l radiculitis 16868123 M54.17 Greater tr ochanteric pain syndrome 1572775 M70.61 M70.62 Long-term drug therapy 906265093 Z79.899 NO UDS 09/12/2023 [id number] KAYLA ROSS MD [place] [address] [place] [address] 11/11/2023 13:28:48 11/11/2023 13:50:17 Lumbar spondylosis 290402188 M47.816 Cervical radiculopathy 80805939 M54.12 Cervical spondylosis 387 458818 M47.812 Lumbosacra l radiculitis 45907910 M54.17 Greater tr ochanteric pain syndrome 9454917 M70.61 M70.62 Long-term drug therapy 572926634 Z79.815 [id number] MD [place] [address] [place] [address] 01/12/2024 12:52:08 01/12/2024 13:08:02 Lumbar spondylosis 268256085 M47.816 Cervical radiculopathy 50906185 M54.12 Cervical spondylosis 387 419469 M47.812 Lumbosacra l radiculitis 58740632 M54.17 Greater tr ochanteric pain syndrome 6291051 M70.61 M70.62 Long-term drug therapy 718447233 Z79.899 NO UDS TODAY [id number] MD [place] [address] 6 03/08/2024 12:55:00 03/08/2024 13:16:57 Lumbar spondylosis 530310280 M47.816 Cervical radiculopathy 21023466 M54.12 Cervical spondylosis 387 829414 M47.812 Lumbosacra l radiculitis 01808535 M54.17 Greater tr ochanteric pain syndrome 6804909 M70.61 M70.62 Long-term drug therapy 824527506 Z79.899 NO UDS TODAY Chronic pain 75095023 G8 9.29 [id number] KAYLA ROSS [place] [address] [place] [address] 05/06/2024 09:46:12 05/06/2024 10:14:25 Lumbar spondylosis 763969748 M47.816 Cervical radiculopathy 34788903 M54.12 Cervical spondylosis 387 287312 M47.812 Lumbosacra l radiculitis 38607251 M54.17 Greater tr ochanteric pain syndrome 1096672 M70.61 M70.62 Long-term drug therapy 883301138 Z79.899 NO UDS TODAY Chronic pain 49104460 G8 9.29 [id number] MD [place] [address] [place] [address] 07/05/2024 09:44:22 07/05/2024 09:55:33 Cervical radiculopathy 12898099 M54.12 Greater tr ochanteric pain syndrome 8138596 M70.61 M70.62 Chronic pain 79547240 G8 9.29 Long-term drug therapy 449539104 Z79.899 The patient was advised that the purpose of this urine drug screen is to monitor for compliance and to assist in risk stratifica tion. Lumbar radiculopathy 128 639081 M54.16 [id number] MD [place] [address] [place] [address] 08/30/2024 09:39:52 08/30/2024 10:05:20 Chronic pain 81477078 G89.29 Cervical radiculopathy 15258738 M54.12 Lumbar radiculopathy 128 261563 M54.16 Greater tr ochanteric pain syndrome 2688004 M70.61 M70.62 Long-term drug therapy 624907973 Z79.899 NO UDS TODAY 08/30/2024 [id number] MD [place] [address] [place] [address] 11/01/2024 08:01:11 11/01/2024 08:34:00 Chronic pain 37505802 G89.29 Cervical radiculopathy 99489804 M54.12 Lumbar radiculopathy 128 307868 M54.16 Greater tr ochanteric pain syndrome 7727067 M70.61 M70.62 Long-term drug therapy 068194450 Z79.899 UDS TODAY 10/29/2024 Hypertensi on screening 324777898 Z13.6 Acute pain 859817682 R52 [id number] MD Mit[place] [address] [place] [address] 12/31/2024 14:35:56 12/31/2024 15:25:02 Chronic pain 47146925 G89.29 Cervical radiculopathy 36636633 M54.12 Lumbar radiculopathy 128 569433 M54.16 Greater tr ochanteric pain syndrome 8102301 M70.61 M70.62 Hypertensi on screening 468090749 Z13.6 Long-term drug therapy 355624530 Z79.899 NO UDS TODAY 12/31/2024 Acute pain 740121955 R52 Health Concerns Section Related Observation LastModified by Organization Detai ls LastModified Time None Recorded Concern Status LastModified by Organization Details LastModified Time None Recorded Advance Directives Directive N: Payers Insurance Date Sequence Insurance Name Policy Number Policy Esqueda Covered Member ID Esqueda Member ID Guarantor Name 01/03/2025 1 PAS[employer]ORT BY [employer] (MEDICAID REPLACEMENT - HMO) Miranda Guzman [id number] Miranda Guzman Notes Date Note Type Note Provider Name and Address Organization Details Recorded Time 05/06/2024 text/html Neck painReporte d bypatient.Onset:date of onset: (2014) Location:bilateral paraspinal; midline spine; radiating to the bilateral upper extremities to the hand; R>L Duration:constant Context:started without cause Quality:throbbing;num srikanth;burning;aching;s tabbing;sharp;varies Pain Intensitycurrent pain level: 5/10; worst pain level: 5/10; moderate Alleviating Factors:nothing helps Timing:constant; varies throughout the day Associated Symptoms:no dizziness; no popping/clicking; no bladder incontinence; no bowel incontinence;weakness ;numbness;tingling;pa in in upper extremities Functional Assessment/Disability IndexLiving Independently; Able to bathe/groom without assistance.;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 Prior Imaging:MRI (04/26/22 C-Spine); 04/26/22 EMG Bilateral Upper extremities Previous Cervical Surgery:recent surgical evaluation: (06/2022 Dr. Oates at [facility] neurosurgery - patient was referred for pain management) Interventional Treatment History:none Previous PT:3weeks of PT completed:; dates: (06/27/22); response to therapy: no pain improvement; None current Other Conservative Treatment:chiropracti c treatments: Current Analgesics:Gabapentin effective; Reported pain relief- 50% for 4 hours; Last dose of Gabapentin was this morning around 7:30 AM 05/06/2024 Medications History:NSAIDS: (Ibuprofen- minimally effective); muscle relaxants: (robaxin- minimal relief); neuropathics: (denies rx); opioid pain medications: ([place]-ineffective tramadol- allergy) Adverse Reactions:constipatio n Working:no Functional Scores:Neck Disability Index (NDI) Completed: 07/03/22 LISSETTE 26 Prior Pain Management:no Complete Care Program:Order Date: (05/06/2024) Patient is here today for med refill. Patient rates her pain 5/10 today. Patient states no changes since her last visit. The patient has had no recent hospitalization, ER visits, specialist appointments (neurology, orthopedics, surgery) since their last visit. THUAN LEROY APRN [address] [place] [address], [phone], [facility] 05/06/2024 12:31:53 07/05/2024 text/html Neck painReporte d bypatient.Onset:date of onset: (2014) Location:bilateral paraspinal; midline spine; radiating to the bilateral upper extremities to the hand; R>L Duration:constant Context:started without cause Quality:throbbing;num srikanth;burning;aching;s tabbing;sharp;varies Pain Intensitycurrent pain level: 4/10; worst pain level: 10/10; moderate Alleviating Factors:nothing helps Timing:constant; varies throughout the day Associated Symptoms:no dizziness; no popping/clicking; no bladder incontinence; no bowel incontinence;weakness ;numbness;tingling;pa in in upper extremities Functional Assessment/Disability IndexLiving Independently; Able to bathe/groom without assistance.; 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 Prior Imaging:MRI (04/26/22 C-Spine); 04/26/22 EMG Bilateral Upper extremities Previous Cervical Surgery:recent surgical evaluation: (06/2022 Dr. Oates at [facility] neurosurgery - patient was referred for pain management) Interventional Treatment History:none Previous PT:3weeks of PT completed:; dates: (06/27/22); response to therapy: no pain improvement; None current Other Conservative Treatment:chiropracti c treatments: Current Analgesics:Gabapentin effective; NSAIDs effective; Muscle Relaxants effective; Reported pain relief- 50% for 4 hours; Last dose of Gabapentin was this morning around 8AM. Pharmacy verified. Medications History:NSAIDS: (Ibuprofen- minimally effective); muscle relaxants: (robaxin- minimal relief); neuropathics: (denies rx); opioid pain medications: ([place]-ineffective tramadol- allergy) Adverse Reactions:no nausea; no vomiting; no constipation; no itching Working:no Functional Scores:Neck Disability Index (NDI) Completed: 07/03/22 LISSETTE 26 Prior Pain Management:no For Female Patients:Are you ? No Complete Care Program:Order Date: (05/06/2024) Patient presents today for f/u and medication refill. The patient has had no recent hospitalization, ER visits, specialist appointments (neurology, orthopedics, surgery), or updated imaging since their last visit. PCP prescribes Ibuprofen and Tizanidine. TAMMY Zheng [address] [place] [address], [phone], [facility] 07/05/2024 10:02:50 08/30/2024 text/html Neck painReporte d bypatient.Onset:date of onset: (2014) Location:bilateral paraspinal; midline spine; radiating to the bilateral upper extremities to the hand; R>L Duration:constant Context:started without cause Quality:throbbing;num srikanth;burning;aching;s tabbing;sharp;varies Pain Intensitycurrent pain level: 4/10; worst pain level: 10/10; moderate Alleviating Factors:nothing helps Timing:constant; varies throughout the day Associated Symptoms:no dizziness; no popping/clicking; no bladder incontinence; no bowel incontinence;weakness ;numbness;tingling;pa in in upper extremities Functional Assessment/Disability IndexLiving Independently; Able to bathe/groom without assistance.; 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 Prior Imaging:MRI (04/26/22 C-Spine); 04/26/22 EMG Bilateral Upper extremities Previous Cervical Surgery:recent surgical evaluation: (06/2022 Dr. Oates at [facility] neurosurgery - patient was referred for pain management) Interventional Treatment History:none Previous PT:3weeks of PT completed:; dates: (06/27/22); response to therapy: no pain improvement; None current Other Conservative Treatment:chiropracti c treatments: Current Analgesics:Gabapentin effective; NSAIDs effective; Muscle Relaxants effective; Reported pain relief- 50% for 4 hours; Last dose of Gabapentin was this morning around 8AM. Pharmacy verified. 08/30/2024 Medications History:NSAIDS: (Ibuprofen- minimally effective); muscle relaxants: (robaxin- minimal relief); neuropathics: (denies rx); opioid pain medications: ([place]-ineffective tramadol- allergy) Adverse Reactions:no nausea; no vomiting; no constipation; no itching Working:no Functional Scores:Neck Disability Index (NDI) Completed: 07/03/22 LISSETTE 26 Prior Pain Management:no For Female Patients:Are you ? No Complete Care Program:Order Date: (05/06/2024) Patient presents today for f/u and medication refill.Patient states pain is 4/10 today . The patient has had no recent hospitalization, ER visits, specialist appointments (neurology, orthopedics, surgery), or updated imaging since their last visit. PCP prescribes Ibuprofen and Tizanidine. Patient states when she is sitting her left leg goes numb . Patient states she has been having tingling in both hands more so on the left. 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 Prior Imaging:MRI (04/26/22 C-Spine); 04/26/22 EMG Bilateral Upper extremities Previous Cervical Surgery:recent surgical evaluation: (06/2022 Dr. Oates at [facility] neurosurgery - patient was referred for pain management) Interventional Treatment History:none Previous PT:3weeks of PT completed:; dates: (06/27/22); response to therapy: no pain improvement; None current Other Conservative Treatment:chiropracti c treatments: Current Analgesics:Gabapentin effective; NSAIDs effective; Muscle Relaxants effective; Reported pain relief- 50% for 4 hours; Last dose of Gabapentin was this morning around 8AM. Pharmacy verified. Medications History:NSAIDS: (Ibuprofen- minimally effective); muscle relaxants: (robaxin- minimal relief); neuropathics: (denies rx); opioid pain medications: ([place]-ineffective tramadol- allergy) Adverse Reactions:no nausea; no vomiting; no constipation; no itching Working:no Functional Scores:Neck Disability Index (NDI) Completed: 07/03/22 LISSETTE 26 Prior Pain Management:no For Female Patients:Are you ? No Complete Care Program:Order Date: (10/29/2024) Patient presents today for f/u and medication refill.Patient states pain is 6/10 today . The patient has had no recent hospitalization, ER visits, specialist appointments (neurology, orthopedics, surgery), or updated imaging since their last visit. PCP prescribes Tizanidine. 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 Prior Imaging:MRI (04/26/22 C-Spine); 04/26/22 EMG Bilateral Upper extremities Previous Cervical Surgery:recent surgical evaluation: (06/2022 Dr. Oates at [facility] neurosurgery - patient was referred for pain [...] relief); neuropathics: (denies rx); opioid pain medications: ([place]-ineffective tramadol- allergy) Adverse Reactions:no nausea; no vomiting; [...] would like to discuss medication today. THUAN LEROY, MILL WORKER [address] [place], [address], [facility], [facility] 12/31/2024 16:28:30 OBGyn Episode No OBEpisode recorded.
== END 2025-02-24 23:59 | disposition home or self-care (01) ==
LOC: LAB.DROPOF 02-25 13:45
PROVIDERS: PCP Student in an Organized Health Care Education/Training Program; Visit Provider Student in an Organized Health Care Education/Training Program
DX: R09.81 Nasal congestion (principal)
CPT/HCPCS: 87631